=== PATIENT | male | born 1960 | race Caucasian/White ===

== ENCOUNTER 2018-09-14 02:44 | Emergency (ER) | payer MEDICAID, OTHER ==
[~2018-09-14] VITALS: Ht 182.9 cm; Wt 77.2 kg
[~2018-09-14 02:44] MED LIST: ALBU8HFA PO; HYDR25SU48 RC; PRED50TA PO
[2018-09-14] MEDS ORDERED: PRED20TA PO (02:58)
[2018-09-14] MEDS ORDERED: ALBU8.5H8 IH (02:58)
[2018-09-14] MEDS ORDERED: predniSONE 20 mg tablet PO ONE (03:00)
[2018-09-14] MEDS ORDERED: azithromycin 250mg tablet PO ONE (03:00)
[2018-09-14] MEDS ORDERED: ipratropium/albuterol 3ml nebule NEB ONE (03:00)
[2018-09-14 03:52] VITALS: BP 110/73
--- NOTE | 2018-09-14 03:52 | NUR ---
Patient left prior to getting PO medications.
== END 2018-09-14 03:53 | disposition home or self-care (01) ==
LOC: ER 02:45
DX: J45.901 Unspecified asthma with (acute) exacerbation (principal); F17.210 Nicotine dependence, cigarettes, uncomplicated
CPT/HCPCS: 94640; 94760; 99283